=== PATIENT | male | born 1985 | race African-American/Black ===

== ENCOUNTER 2021-11-14 17:52 | Emergency (ER) | payer OTHER ==
[2021-11-14 19:36] LABS: BASOPHIL 0.3 % (0-2); EOSINOPHIL 0 % (0-5); HCT 44.3 % (42.0-52.0); HGB 15.9 g/dl (13.2-18.0); LYMPHOCYTE 5.6 % (15-48); MCHC 35.9 g/dL (32.0-36.0); MCV 94.7 fL (78.0-100.0); MPV 9.9 fL (6.0-9.5); NEUTROPHIL 89.7 % (41-80); NRBC 0; PLT 280 K/uL (150-400); RBC 4.68 M/uL (4.70-6.00); RDW 12.7 % (11.5-14.0); WBC 17.4 K/uL (4.0-10.5)
[2021-11-14 19:47] LABS: ALBUMIN 4.6 g/dL (3.4-5.0); BILIRUBIN - TOTAL 0.9 mg/dL (0.2-1.0); BUN/CREAT RATIO (CALC) 13.4 RATIO; CREATININE 0.82 mg/dL (0.67-1.17); GLOBULIN (CALCULATION) 2.8 g/dL; POTASSIUM 3.3 mmol/L (3.5-5.1); TOTAL PROTEIN 7.4 g/dL (6.4-8.2)
[2021-11-15 04:51] LABS: HCT 39.8 % (42.0-52.0); HGB 14.1 g/dl (13.2-18.0); MCH 33.4 pg (25.0-31.0); MCHC 35.4 g/dL (32.0-36.0); MCV 94.3 fL (78.0-100.0); MPV 9.2 fL (6.0-9.5); RBC 4.22 M/uL (4.70-6.00); RDW 12.6 % (11.5-14.0); WBC 17.3 K/uL (4.0-10.5)
[2021-11-15 05:05] LABS: BUN/CREAT RATIO (CALC) 11.1 RATIO; CREATININE 0.81 mg/dL (0.67-1.17); POTASSIUM 3.5 mmol/L (3.5-5.1)
[2021-11-15] MEDS ORDERED: ONDANSETRON ODT4 MG PO (05:34)
[2021-11-15] MEDS ORDERED: PERCOCET 5-3251 EACH PO (05:34)
== END 2021-11-15 06:35 | disposition home or self-care (01) ==
LOC: FER 17:52
PROVIDERS: Emergency Medicine
DX: K85.90 Acute pancreatitis without necrosis or infection, unspecified (principal); F17.200 Nicotine dependence, unspecified, uncomplicated
CPT/HCPCS: 36415; 80048; 80053; 83690; 85025; J1170; J2405; J7030; Q9967

== ENCOUNTER 2021-11-17 12:54 | Emergency (ER) | payer OTHER ==
[~2021-11-17 12:54] MED LIST: ONDANSETRON ODT4 MG PO; PERCOCET 5-3251 EACH PO
[2021-11-17 13:28] LABS: BASOPHIL 0.3 % (0-2); EOSINOPHIL 2.4 % (0-5); HCT 40.6 % (42.0-52.0); HGB 14.4 g/dl (13.2-18.0); LYMPHOCYTE 12.4 % (15-48); MCH 33.6 pg (25.0-31.0); MCHC 35.5 g/dL (32.0-36.0); MCV 94.6 fL (78.0-100.0); MONOCYTE 6.4 % (0-12); MPV 9.3 fL (6.0-9.5); NEUTROPHIL 78.1 % (41-80); NRBC 0; PLT 229 K/uL (150-400); RBC 4.29 M/uL (4.70-6.00); RDW 12.4 % (11.5-14.0); WBC 13.7 K/uL (4.0-10.5)
[2021-11-17 13:45] LABS: ALBUMIN 3.7 g/dL (3.4-5.0); BILIRUBIN - TOTAL 0.7 mg/dL (0.2-1.0); BUN/CREAT RATIO (CALC) 6.2 RATIO; CREATININE 0.81 mg/dL (0.67-1.17); GLOBULIN (CALCULATION) 4.1 g/dL; POTASSIUM 3.3 mmol/L (3.5-5.1); TOTAL PROTEIN 7.8 g/dL (6.4-8.2)
[2021-11-17] MEDS ORDERED: NORCO 5-325 TA1 EACH PO (14:07)
[2021-11-17] MEDS ORDERED: HYDROCODON-ACE1 EAC6 PO (14:19)
== END 2021-11-17 14:19 | disposition home or self-care (01) ==
LOC: FER 12:54
PROVIDERS: Nurse Practitioner Family
DX: K85.90 Acute pancreatitis without necrosis or infection, unspecified (principal); Z28.310 Unvaccinated for COVID-19
CPT/HCPCS: 36415; 80053; 83690; 85025; 99284

== ENCOUNTER 2022-02-23 16:45 | Emergency (ER) | payer OTHER ==
[~2022-02-23 16:45] MED LIST changes: +HYDROCODON-ACE1 EAC6 PO; +NORCO 5-325 TA1 EACH PO
[2022-02-23 18:21] LABS: BASOPHIL 0.5 % (0-2); EOSINOPHIL 0.2 % (0-5); HGB 15.9 g/dl (13.2-18.0); LYMPHOCYTE 11.8 % (15-48); MCH 33.5 pg (25.0-31.0); MCHC 36.1 g/dL (32.0-36.0); MCV 92.8 fL (78.0-100.0); MONOCYTE 5.4 % (0-12); MPV 9.7 fL (6.0-9.5); NEUTROPHIL 81.7 % (41-80); NRBC 0; PLT 276 K/uL (150-400); RBC 4.74 M/uL (4.70-6.00); RDW 13.3 % (11.5-14.0)
[2022-02-23 18:32] LABS: BILIRUBIN NEGATIVE (NEGATIVE); BLOOD NEGATIVE Ery/uL (NEGATIVE); CLARITY CLEAR (CLEAR); COLOR YELLOW (YELLOW); GLUCOSE (U) NORMAL (NORMAL); LEUKOCYTES NEGATIVE Leu/uL (NEGATIVE); NITRITE NEGATIVE (NEGATIVE); PROTEIN 1+ mg/dL (NEGATIVE); UROBILINOGEN 0.2 mg/dL (0.2-1.0)
[2022-02-23 18:49] LABS: AMORPHOUS URATES CRYSTALS MODERATE
[2022-02-23 19:01] LABS: CORONAVIRUS 2019 SARS-COV-2 NEGATIVE (NEGATIVE); INFLUENZA A NAA NEGATIVE (NEGATIVE)
[2022-02-23 19:07] LABS: BUN/CREAT RATIO (CALC) 15.9 RATIO; CREATININE 0.82 mg/dL (0.67-1.17); GLOBULIN (CALCULATION) 2.9 g/dL; POTASSIUM 3.6 mmol/L (3.5-5.1); TOTAL PROTEIN 7.9 g/dL (6.4-8.2)
[2022-02-23] MEDS ORDERED: PERCOCET 5-3251 EACH PO (22:04)
[2022-02-23] MEDS ORDERED: ONDANSETRON HCL4 MG PO (22:04)
[2022-02-24 03:46] LABS: BILIRUBIN - TOTAL 0.7 mg/dL (0.2-1.0)
[2022-02-26] MEDS ORDERED: PERCOCET 5-3251 EACH PO (09:47)
== END 2022-02-23 22:38 | disposition home or self-care (01) ==
LOC: FER 16:45
PROVIDERS: Nurse Practitioner Family
DX: K85.90 Acute pancreatitis without necrosis or infection, unspecified (principal); Z20.822 Contact with and (suspected) exposure to COVID-19
CPT/HCPCS: 36415; 80053; 81001; 82150; 83690; 85025; J1170; J1885; J2405; J7030; U0002